=== PATIENT | female | born 1945 | race Caucasian/White ===

== ENCOUNTER 2016-09-24 15:11 | Emergency (ER) | payer OTHER ==
[~2016-09-24] VITALS: Ht 172.7 cm; Wt 113.4 kg
[~2016-09-24 15:11] MED LIST: CARAFATE1 GM/10 ML PO; CIPRO500 M1 PO; MOBIC7.5 MG PO; PERCOCET 325 MG1 TA2 PO
[2016-09-24] MEDS ORDERED: LISINOPRIL10 M1 PO (18:47)
[2016-09-24] MEDS ORDERED: IRON325 M3 PO (18:47)
[2016-09-24] MEDS ORDERED: FUROSEMIDE20 M1 PO (18:47)
[2016-09-24] MEDS ORDERED: JANUVIA100 M1 PO (18:47)
[2016-09-24] MEDS ORDERED: AMLODIPINE-BEN1 EAC3 PO (18:47)
[2016-09-24] MEDS ORDERED: ACTOPLUS MET 11 EAC1 PO (18:48)
[2016-09-24] MEDS ORDERED: OMEPRAZOLE40 M1 PO (18:48)
--- NOTE | 2016-09-24 18:49 | ED EAR COMPLAINT ---
History of Present Illness General Chief Complaint: Ear Complaints Stated Complaint: LEFT EAR PAIN Source: family Exam Limitations: no limitations Vital Signs & Intake/Output Vital Signs & Intake/Output Vital Signs Date Time Temp Pulse Resp B/P B/P Pulse O2 O2 Flow FiO2 Mean Ox Delivery Rate 09/24 1859 97.7 94 18 145/78 97 Room Air 09/24 1518 96.9 104 18 144/74 98 Room Air Allergies Coded Allergies: NO KNOWN ALLERGIES (09/14/14) Reconcile Medications Amlodipine Besylate/Benazepril (Amlodipine-Benazepril 5-10 MG) 5 MG-10 MG CAPSULE 1 CAP PO DAILY BP (Reported) Ciprofloxacin HCl (Cipro) 500 MG TABLET 1 TAB PO BID UTI Ferrous Sulfate (IRON) 325 MG (65 MG IRON) TABLET 1 TAB PO DAILY SUPPLEMENT ( Reported) Furosemide 20 MG TABLET 1 TAB PO PRN DIURETIC (Reported) Lisinopril 10 MG TABLET 1 TAB PO DAILY BP (Reported) Omeprazole 40 MG CAPSULE.DR 1 CAP PO DAILY GI (Reported) Pioglitazone HCl/Metformin HCl (Actoplus Met 15 MG-850 MG Tab) 15 MG-850 MG TABLET 1 TAB PO BID DM (Reported) Sitagliptin Phosphate (Januvia) 100 MG TABLET 1 TAB PO DAILY DM (Reported) Triage Note: 70 YO FEMALE TO ER C/O L EAR PAIN. STATES YESTERDAY IT WAS CLOGGED SO SHE FLUSHED IT OUT AND TODAY SHE IS HAVING SHARP PAINS IN THE EAR. STATES SHE CAN HEAR OUT OF IT BUT NOT WELL USUAL. 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 Triage Nurses Notes Reviewed? yes Onset: Gradual Duration: day(s): Timing: recent history Severity: moderate No Modifying Factors: none HPI: 70-year-old female presents emergency department complaining of left ear pain. Patient states that she had decreased hearing in the left ear and thought she had some cerumen impaction, she has a history of this in the past. She used saline flush on Saturday and then noticed pain increasing in the left ear. Pain has increased until today, she still does not feel that she has regained her hearing fully in the left ear. She denies use of hearing aids or headphones. The patient tried taking Tylenol to relieve her pain however no relief in her symptoms. She denies fevers, chills, sore throat, cough, visual changes, skin changes, dyspnea. (YEIMY AL PA-C) Past History Travel History Traveled to [place] past 21 day No Medical History Any Pertinent Medical History? 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 No (YEIMY AL PA-C) Review of Systems Review of Systems Constitutional: Reports: no symptoms. EENTM: Reports: see HPI. Respiratory: Reports: no symptoms. Cardiovascular: Reports: no symptoms. GI: Reports: no symptoms. Genitourinary: Reports: no symptoms. Musculoskeletal: Reports: no symptoms. Skin: Reports: no symptoms. Neurological/Psychological: Reports: no symptoms. Hematologic/Endocrine: Reports: no symptoms. Immunologic/Allergic: Reports: no symptoms. All Other Systems: Reviewed and Negative (MIKAELA MERRILL,YEIMY WEST) Physical Exam Physical Exam Ears: Bilateral: other (see below). Comments: Well-developed well-nourished person in no acute distress HEENT: Right TM WNL, left canal with white debris, TM without erythema, left tragal tenderness; PERRL, EOMI HEAD is atraumatic. moist mucous membranes, pharynx without erythema or exudate. Neck: Supple, no lymphadenopathy, normal range of motion Back: Nontender, Full range of motion Cardiovascular: Regular rate and rhythms no murmurs rubs or gallops Respiratory: No respiratory distress. Patient speaking in full complete sentences. Breath sounds clear to auscultation bilaterally: NO W/R/R Extremity: No edema, full range of motion of extremities, Neuro: Alert oriented x3, motor sensory normal. There were no obvious focal neurologic abnormalities. Skin: No appreciable rash on exposed skin, skin is warm and dry. Psych: Mood and affect is normal, memory and judgment is normal. (YEIMY AL PA-C) Progress Differential Diagnoses I considered the following diagnoses in my evaluation of the patient: [otitis media, otitis externa, cerumin impaction, vertigo, conductive hearing loss] Plan of Care: Physical examination the patient has white debris filling canal of left ear. SHe is complaining of left ear pain with decreased hearing from left ear. Likely otitis externa. Patient has stable vital signs, skin surrounding the ear is within normal limits, no erythema, no swelling. She was given an otic antibiotic drops for her otitis externa. She'll follow-up with her primary care doctor this week for recheck of her ears. She will return with any worsening symptoms or concerns. The patient is nontoxic appearing, afebrile, she is in no acute distress. The patient is in agreement with the plan of care. Initial ED EKG: none (MIKEALA MERRILL,YEIMY WEST) Departure Departure Disposition: HOME OR SELF CARE Condition: Stable Clinical Impression Primary Impression: Otitis externa Referrals: PEDRO MORIN MD (PCP/Family) Additional Instructions: Apply ear drops into left ear as prescribed for 7 days. Follow up with your primary care doctor in 5-7 days for a re-check. Return with any worsening symptoms or concerns. Take tylenol or motrin as prescribed as needed for pain. Please note that there might be incidental findings in your evaluation that are unrelated to the current emergency department visit. Please notify your primary care doctor about this emergency department visit in order to obtain and review all of the testing performed so that these incidental findings can be monitored as needed. If you had an x-ray performed, please understand that some fractures may not be seen on the initial set of x-rays. If your symptoms persist you might need a repeat set of x-rays to check for such a fracture. If you had a laceration evaluated, please understand that foreign bodies such as glass or wood may not be visible to the naked eye or on plain x-rays. If the wound becomes red, swollen, increasingly more painful or if there is any drainage from the wound, please have it reevaluated by a physician for the possibility of a retained foreign body. If you're unable to follow up as outlined in the discharge instructions please return to the emergency department. Thank you for choosing the [facility] Emergency Department for your care. It was a pleasure to serve you today. Departure Forms: Customer Survey General Discharge Information (MIKAELA MERRILL,YEIMY WEST) PA/HOTEL SERVICES SUPERVISOR Co-Sign Statement Statement: ED Attending supervision documentation- [x] I saw and evaluated the patient. I have also reviewed all the pertinent lab results and diagnostic results. I agree with the findings and the plan of care as documented in the PA's/HOTEL SERVICES SUPERVISOR's documentation. [] I have reviewed the ED Record and agree with the PA's/HOTEL SERVICES SUPERVISOR's documentation. [] Additions or exceptions (if any) to the PAs/HOTEL SERVICES SUPERVISOR's note and plan are summarized below: [] (DAVID WAKEFIELD,DEANDRA Westbrook)
[2016-09-24 18:59] VITALS: BP 145/78
== END 2016-09-24 19:02 ==
LOC: ERH 15:11
DX: H60.92 Unspecified otitis externa, left ear (principal)

== ENCOUNTER 2017-03-17 11:26 | Inpatient (IN) | payer OTHER ==
[~2017-03-17] VITALS: Ht 172.7 cm; Wt 78.0 kg
[~2017-03-17 11:26] MED LIST changes: +ACTOPLUS MET 11 EAC1 PO; +AMLODIPINE-BEN1 EAC3 PO; +FUROSEMIDE20 M1 PO; +IRON325 M3 PO; +JANUVIA100 M1 PO; +LISINOPRIL10 M1 PO; +OMEPRAZOLE40 M1 PO
--- NOTE | 2017-03-17 11:57 | ED GENERAL ADULT ---
History of Present Illness General Chief Complaint: General Adult Stated Complaint: "IM REALLY NOT FEELING GOOD" Source: patient, old records Exam Limitations: no limitations Vital Signs & Intake/Output Vital Signs & Intake/Output Vital Signs Date Time Temp Pulse Resp B/P B/P Pulse O2 O2 Flow FiO2 Mean Ox Delivery Rate 03/19 0800 95 Room Air Room Air 03/19 0458 97.7 82 20 138/80 94 Room Air 03/18 2331 130/88 03/18 2230 98.4 86 20 142/98 99 Room Air 03/18 1538 98.1 89 24 132/64 92 Room Air 03/18 1527 98.1 89 24 132/64 92 Room Air 03/18 1344 Room Air Room Air ED Intake and Output 03/19 0000 03/18 1200 Intake Total 150 Output Total 350 Balance -200 Intake, IV 50 Intake, Oral 100 Output, Urine 350 Patient 78.018 kg Weight Weight Reported by Patient Measurement Method Allergies Coded Allergies: NO KNOWN ALLERGIES (09/14/14) Reconcile Medications Amlodipine Besylate/Benazepril (Amlodipine-Benazepril 5-10 MG) 5 MG-10 MG CAPSULE 1 CAP PO DAILY BP (Reported) Ferrous Sulfate (IRON) 325 MG (65 MG IRON) TABLET 1 TAB PO DAILY SUPPLEMENT ( Reported) Furosemide 20 MG TABLET 1 TAB PO PRN DIURETIC (Reported) Omeprazole 40 MG CAPSULE.DR 1 CAP PO DAILY GI (Reported) Pioglitazone HCl/Metformin HCl (Actoplus Met 15 MG-850 MG Tab) 15 MG-850 MG TABLET 1 TAB PO BID DM (Reported) Sitagliptin Phosphate (Januvia) 100 MG TABLET 1 TAB PO DAILY DM (Reported) Triage Note: PT TO ED WITH C/O COUGH CONGESTION X 2 WEEKS, MORE RECENTLY STARTED WITH DIARRHEA. Triage Nurses Notes Reviewed? yes HPI: 71F PMH HTN, T2DM, GERD with 1 week of worsening malaise, lethargy, abdominal cramping, diarrhea with 3-4 BM/day, nausea, decreased appetite, vomiting, productive cough with green sputum. Symptoms have persisted and worsened in the past day, patient spent most of the last 48 hours sleeping and reporting no energy, with no appetite and decreased PO intake. She denies fever, chills, sore throat, headache, neck stiffness, chest pain, flank pain, dysuria, constipation. Of note she has had her gall bladder removed and denies RUQ pain. Past History Travel History Traveled to [place] past 21 day No Medical History Any Pertinent Medical History? 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 No Review of Systems Review of Systems Constitutional: Reports: see HPI. EENTM: Reports: no symptoms. Respiratory: Reports: no symptoms. Cardiovascular: Reports: no symptoms. GI: Reports: no symptoms. Genitourinary: Reports: no symptoms. Musculoskeletal: Reports: no symptoms. Skin: Reports: no symptoms. Neurological/Psychological: Reports: no symptoms. Hematologic/Endocrine: Reports: no symptoms. Immunologic/Allergic: Reports: no symptoms. All Other Systems: Reviewed and Negative Physical Exam Physical Exam General Appearance: well developed/nourished, mild distress Head: atraumatic, normal appearance Eyes: Bilateral: normal appearance. Ears, Nose, Throat: normal pharynx, normal ENT inspection, hearing grossly normal, mucous membranes dry Neck: normal inspection, supple Respiratory: chest non-tender, no respiratory distress, bilateral mild wheezing, right sided rhonchi Cardiovascular: regular rate/rhythm Gastrointestinal: soft, non-tender Back: normal inspection, normal range of motion Extremities: normal inspection, normal capillary refill Neurologic/Psych: awake, alert, oriented x 3, normal mood/affect Skin: intact, normal color, warm/dry Core Measures ACS in differential dx? No CVA/TIA Diagnosis: No Sepsis Present: No Sepsis Focused Exam Completed? No Progress Differential Diagnoses I considered the following diagnoses in my evaluation of the patient: meningitis , pharyngitis, pneumonia, [place], gastroenteritis, colitis, pancreatitis, pyelonephritis, influenza Plan of Care: Orders Procedure Date/time Status BASIC ELECTROLYTES PLUS BUN&CR 03/20 599 Active Consistent Carbohydrate 2 03/19 B Active C.DIFFICILE 03/19 1000 Complete HEPATIC FUNCTION PANEL 03/19 599 Complete CBC WITHOUT DIFFERENTIAL 01/09 0600 Complete BASIC ELECTROLYTES PLUS BUN&CR 03/19 06 Complete Isolation 03/19 UNK Active Isolation 03/18 2202 Active RT: Evaluation 03/18 1344 Active Current Medications Sig/Verena Start time Last Medication Dose Stop Time Status Admin Insulin Aspart 0 TIDAC 03/18 1200 AC 03/19 (NovoLOG) 1303 Azithromycin 500 MG DAILY 03/18 1100 AC 03/19 (Zithromax) 0930 Dextrose/Water 250 ML (D5W) Ceftriaxone Sodium 1,000 MG DAILY 03/18 1000 AC 03/19 (Rocephin) 0930 Ferrous Sulfate 325 MG DAILY 03/18 1000 AC 03/19 (Feosol) 0930 Omeprazole 40 MG DAILY AC 03/18 0700 AC 03/19 (Prilosec) 0547 Laboratory Tests 03/19/17 0650: Anion Gap 11, Estimated GFR > 60, BUN/Creatinine Ratio 10.0, Total Bilirubin 0.4 , Direct Bilirubin 0.3, AST 19, ALT 40, Alkaline Phosphatase 119, Total Protein 5.3 L, Albumin 2.6 L, CBC w Diff NO MAN DIFF REQ, RBC 3.58 L, MCV 90.1, MCH 30.4, RDW 13.4, MPV 8.0, Gran % 59.8, Lymphocytes % 28.9, Monocytes % 8.2, Eosinophils % 2.4, Basophils % 0.7, Absolute Granulocytes 3.4, Absolute Lymphocytes 1.7, Absolute Monocytes 0.5, Absolute Eosinophils 0.1, Absolute Basophils 0, PUBS MCHC 33.7 Microbiology 03/19 1004 STOOL: Clostridium difficile Toxin A & B - COMP Diagnostic Imaging: Viewed by Me: Radiology Read. Discussed w/RAD: Radiology Read. CXR Impression: PATIENT: LEE ARANGO PRESENT AGE: 71 PATIENT ACCOUNT NO: [id number] : 46 LOCATION: [facility] ORDERING PHYSICIAN: Risa Galarza MD SERVICE DATE: 03/17/17 EXAM TYPE: RAD - XRY-PORTABLE CHEST XRAY EXAMINATION: XR PORTABLE CHEST CLINICAL INFORMATION: Shortness of breath and cough with right-sided rhonchi. Rule out pneumonia. COMPARISON: Chest x-ray dated 02/20/2009. TECHNIQUE: Portable frontal view of the chest was obtained. FINDINGS: The cardiac silhouette is within normal limits in size. Tortuosity and ectasia of the ascending and descending aorta is seen. Bilateral hilar fullness is also noted. Findings are likely accentuated by the rotated positioning of the patient. Lungs bilaterally are symmetrically expanded and demonstrate slight diffuse reticular prominence in the lower lobes bilaterally, consistent with minimal subsegmental atelectasis. No focal consolidation, effusion or pneumothorax is seen. Thoracolumbar scoliosis and degenerative changes are seen in the thoracic spine IMPRESSION: Minimal bibasilar subsegmental atelectasis. No focal pneumonia. DICTATED BY: Ruth Yeager MD DATE/TIME DICTATED:03/17/171252 CONE MARKER:NIDIA DATE/ TIME TRANSCRIBED:03/17/171252 Initial ED EKG: none Departure Departure Disposition: STILL A PATIENT Condition: Stable Clinical Impression Primary Impression: Acute gastroenteritis Secondary Impressions: Acute bronchitis, Elevated LFTs, Leukocytosis Referrals: Con Vital MD (PCP/Family) Departure Forms: Customer Survey General Discharge Information Admission Note Spoke With: Vineet Patrick MD Documentation of Exam: Documentation of any treatments & extenuating circumstances including Concerns Regarding Discharge (functional status, medication knowledge or non-compliance, living conditions, etc.) that warrant an admission rather than observation: MALAISE, WEAKNESS, COUGH WITH GREEN SPUTUM, INTRACTABLE DIARRHEA, DIFFICULTY EATING OR AMBULATING, TO BE ADMITTED FOR WORKUP OF POSSIBLE SEPSIS, IV HYDRATION , BLOOD CULTURES, ABDOMINAL ULTRASOUND AND CT, TRENDING LFTS, POSSIBLE MRCP Critical Care Note Critical Care Note Critical Care Time: 30-74 min General Discharge Information Admission Note Spoke With: Vineet Patrick MD Documentation of Exam: Documentation of any treatments & extenuating circumstances including Concerns Regarding Discharge (functional status, medication knowledge or non-compliance, living conditions, etc.) that warrant an admission rather than observation: MALAISE, WEAKNESS, COUGH WITH GREEN SPUTUM, INTRACTABLE DIARRHEA, DIFFICULTY EATING OR AMBULATING, TO BE ADMITTED FOR WORKUP OF POSSIBLE SEPSIS, IV HYDRATION , BLOOD CULTURES, ABDOMINAL ULTRASOUND AND CT, TRENDING LFTS, POSSIBLE MRCP
[2017-03-17 12:06] LABS: ABSOLUTE BASOPHIL COUNT 0 /CUMM (0.0-0.2); ABSOLUTE EOSINOPHIL COUNT 0 /CUMM (0.0-0.7); ABSOLUTE GRANULOCYTE CT 15.2 /CUMM (1.4-6.5); ABSOLUTE LYMPH COUNT 1.2 /CUMM (1.2-3.4); ABSOLUTE MONOCYTE COUNT 1.1 /CUMM (0.10-0.60); BASOPHIL % 0 % (0.0-2.0); EOSINOPHIL % 0 % (0-5); MEAN CORPUSCULAR HGB 30.2 PG (27.0-31.0); MEAN CORPUSCULAR HGB CONC 33.2 G/DL (33.0-37.0); MEAN CORPUSCULAR VOLUME 91.1 FL (81.0-99.0); MEAN PLATELET VOLUME 8.1 FL (7.4-10.4); PLATELET COUNT 234 /CUMM (130-400); RBC DISTRIBUTION WIDTH 13.2 % (11.5-14.5); RED BLOOD CELL CT 4.62 /CUMM (4.20-5.40); WHITE BLOOD CELL COUNT 17.5 /CUMM (4.8-10.8)
[2017-03-17 12:12] LABS: GRANULOCYTE % 87.1 % (42.2-75.2)
--- NOTE | 2017-03-17 13:01 | RADIOLOGY REPORT ---
EXAMINATION: XR PORTABLE CHEST CLINICAL INFORMATION: Shortness of breath and cough with right-sided rhonchi. Rule out pneumonia. COMPARISON: Chest x-ray dated 02/20/2009. TECHNIQUE: Portable frontal view of the chest was obtained. FINDINGS: The cardiac silhouette is within normal limits in size. Tortuosity and ectasia of the ascending and descending aorta is seen. Bilateral hilar fullness is also noted. Findings are likely accentuated by the rotated positioning of the patient. Lungs bilaterally are symmetrically expanded and demonstrate slight diffuse reticular prominence in the lower lobes bilaterally, consistent with minimal subsegmental atelectasis. No focal consolidation, effusion or pneumothorax is seen. Thoracolumbar scoliosis and degenerative changes are seen in the thoracic spine IMPRESSION: Minimal bibasilar subsegmental atelectasis. No focal pneumonia.
--- NOTE | 2017-03-17 14:08 | History & Physical ---
[place] 03/17/17 1407: General Information and HPI MD Statement: I have seen and personally examined LEE ARANGO and documented this H&P. The patient is a 71 year old F who presented with a patient stated chief complaint of nausea, diarrhea, crampy abdominal pain and cough with sputum.[]. Source of Information: patient, old records Exam Limitations: no limitations History of Present Illness: 71 YO F non smoker with PMH of HTN, DM, GERD, peptic ulcer disease, arthritis, cholecystectomy, hystrectomy and pylonidal cyst removal came to ED with chief complaint of nausea, diarrhea with crampy abdominal pain and cough his sputum. Patient reported that she was in her usual state of health 3 weeks ago when she started to her common cold symptoms and the symptoms come and go. Patient also reported that for last couple of days she has cough with mucus production but she denied any color of the sputum and also blood in the sputum. She also reported that for last couple of days she has watery diarrhea 3-4 bowel movements every day but she denied any false-negative blood in the stool. Patient also reported having crampy abdominal pain and she is feeling gassy all the time. Patient reported nausea but she didn't throw up. She also endorsed that she has chills but she denied fever. Patient also reported having exertional shortness of breath and sometimes dizziness when she tries to get out of the bed. Patient denied any chest pain, short of breath at rest, fever, ill contact, palpitation, vomiting, loss of consciousness, mechanical fall, change in hearing , change in vision and dysuria ED course: Vitals: Temperature 98.0, pulse 1:30, respiratory rate 18, blood pressure 118/76 , oxygen saturation 97% on room air. Labs: WBC count 17.5, hemoglobin 14.0, hematocrit 42.0, platelet count 234, sodium 133, potassium 4.1, BUN 13, creatinine 0.8, anion gap 17, BUN/creatinine ratio 16.3, glucose 372, calcium 0.9, total bilirubin 1.6, AST 91, ALT 77, alkaline phosphatase 189, total protein 6.7. Allergies/Medications Allergies: Coded Allergies: NO KNOWN ALLERGIES (09/14/14) Home Med list Amlodipine Besylate/Benazepril (Amlodipine-Benazepril 5-10 MG) 5 MG-10 MG CAPSULE 1 CAP PO DAILY BP (Reported) Ferrous Sulfate (IRON) 325 MG (65 MG IRON) TABLET 1 TAB PO DAILY SUPPLEMENT ( Reported) Furosemide 20 MG TABLET 1 TAB PO PRN DIURETIC (Reported) Omeprazole 40 MG CAPSULE.DR 1 CAP PO DAILY GI (Reported) Pioglitazone HCl/Metformin HCl (Actoplus Met 15 MG-850 MG Tab) 15 MG-850 MG TABLET 1 TAB PO BID DM (Reported) Sitagliptin Phosphate (Januvia) 100 MG TABLET 1 TAB PO DAILY DM (Reported) Past History Travel History Traveled to [place] past 21 day No Medical History Neurological: NONE EENT: NONE Cardiovascular: hypertension Respiratory: NONE Gastrointestinal: peptic ulcer disease, BLEEDING STOMACH ULCER Hepatic: NONE Renal: NONE Musculoskeletal: ARTHRITIS Psychiatric: NONE Endocrine: NIDDM Blood Disorders: NONE Cancer(s): NONE [employer] AUT[employer]IC/Reproductive: NONE Surgical History Surgical History: cholecystectomy, hysterectomy, PYLONIDAL CYST REMOVAL Past Family/Social History Psychosocial History Services at Home: NONE ETOH Use: denies use Illicit Drug Use: denies illicit drug use Review of Systems Review of Systems Constitutional: Reports: weakness. EENTM: Reports: no symptoms. Cardiovascular: Reports: no symptoms. Respiratory: Reports: cough, short of breath, sputum production. GI: Reports: abdominal pain, diarrhea, nausea. Genitourinary: Reports: no symptoms. Musculoskeletal: Reports: see HPI. Neurological/Psychological: Reports: no symptoms. Exam & Diagnostic Data Last 24 Hrs of Vital Signs/I&O Vital Signs Date Time Temp Pulse Resp B/P B/P Pulse O2 O2 Flow FiO2 Mean Ox Delivery Rate 03/17 1615 97.9 124 20 118/59 95 Room Air 03/17 1400 98.7 128 18 122/69 94 03/17 1129 98.0 130 18 118/76 97 Intake & Output 03/17 1600 03/17 0800 03/17 0000 Intake Total Output Total Balance Patient 250 lb Weight Weight Reported by Patient Measurement Method Physical Exam General Appearance Alert, Oriented X3, Cooperative, No Acute Distress Skin Temp/Moisture Exam: Warm/Dry Sepsis Skin Exam (color): Normal for Ethnicity HEENT Atraumatic, PERRLA, EOMI Neck Supple Cardiovascular Normal S1, Normal S2 Lungs Normal Air Movement, b/l crackles Abdomen Soft, No Tenderness Neurological Normal Speech, Strength at 5/5 X4 Ext, Normal Tone, Sensation Intact Extremities B/L pedal edema Last 24 Hrs of Labs/[place]: Laboratory Tests 03/17/17 1607: Lactic Acid Cancelled 03/17/17 1535: Urinalysis LIGHT H, Urine Color YEL, Urine Clarity CLEAR, Urine pH 6.0, Ur Specific [place] 1.015, Urine Protein 100 H, Urine Ketones 15 H, Urine Nitrite NEG, Urine Bilirubin NEG, Urine Urobilinogen 0.2, Ur Leukocyte Esterase NEG, Ur Microscopic SEDIMENT EXAMINED, Urine RBC 1-3, Urine WBC RARE, Ur Epithelial Cells RARE, Urine Bacteria FEW H, Hyaline Casts 1-3 H, Urine Mucus FEW, Urine Hemoglobin SMALL H, Urine Glucose >=1000 H 03/17/17 1320: Lactic Acid 1.4 03/17/17 1145: Anion Gap 17 H, Estimated GFR > 60, BUN/Creatinine Ratio 16.3, Glucose 372 H, Calcium 9.0, Total Bilirubin 1.6 H, AST 91 H, ALT 77 H, Alkaline Phosphatase 189 H, Total Protein 6.7, Albumin 3.5, Globulin 3.2, Albumin/Globulin Ratio 1.1 , Lipase 46, CBC w Diff MAN DIFF ORDERED, RBC 4.62, MCV 91.1, MCH 30.2, RDW 13.2 , MPV 8.1, Gran % 87.1 H, Lymphocytes % 6.6 L, Monocytes % 6.3, Eosinophils % 0, Basophils % 0, Absolute Granulocytes 15.2 H, Absolute Lymphocytes 1.2, Absolute Monocytes 1.1 H, Absolute Eosinophils 0, Absolute Basophils 0, Platelet Estimate VERIFIED BY SMEAR, Normocytic RBCs VERIFIED, Normochromic RBCs VERIFIED, PUBS MCHC 33.2 Microbiology 03/17 1535 URINE ROUT: Urine Culture - RECD 03/17 1332 BLOOD: Blood Culture - RECD 03/17 1320 BLOOD: Blood Culture - RECD 03/17 1307 BLOOD: Blood Culture - CAN Cancelled: Cancelled via OE: Per MD Decision 03/17 1247 NASOPHARYN: Influenza Virus A & B Rapid Smear - COMP Assessment/Plan Assessment: 71 YO F non smoker with PMH of HTN, DM, GERD, peptic ulcer disease, arthritis, cholecystectomy, hystrectomy and pylonidal cyst removal came to ED with chief complaint of nausea, diarrhea with crampy abdominal pain and cough his sputum. With the patient on general medicine floor to treat for acute gastroenteritis and possible bronchitis. Acute gastroenteritis: -Possibly patient has viral gastroenteritis. -we will follow the stool culture and c.diff. -iv hydration -We will check input and output. -IV zofran as needed for nausea. -we will continue ppi Elevated anion gap; -possibly due to diabetic ketoacidosis considering anion gap 17 with blood sugar level 372 on admission with abdominal pain and diarrhea. -urine ketone are positive could be due to dehydration. Community accquired pneumonia: -possibly she has community accquied pneumonia considering her cough with sputum. -we will follow the blood an durine cultures. -we will follow the urine for strep and legionella antigens. -we will give iv antibiotics ceftriaxone and azithromycin -TRC nebulization as needed. -Pulmonary toilet as needed. -incentive spirometry. -Supplemental o2 as needed to keep the oxygen saturation above 92%. -We will follow the wbc count that is 17 on admission. -we will follow the vitals. -CTA to rule out PE considering her dyspnea. Tansaminitis: -possibly due to WOLFF considering normal hepatitis serology in the past. -we will follow the LFTs -USG upper right quadrent for hepatobiliary to rule out obstructive cause. Episode of hemoptysis: -one episode of hemoptysis in ED -we will do CT scan chest and INR H/O HTN: -We will continue amlodipine but right now holding because of borderline normal BP. -We will resume it tomorrow. H/O DIABETES: -Accu checks -we will hold the oral antidiabetic meds and keep the patient on insulin novolog according to sliding scale. -we will check HbA1c DVT prophylaxis: Mechanical Code status: Full code As Ranked By This Provider Problem List: 1. Acute gastroenteritis 2. Elevated LFTs 3. Leukocytosis 4. Community acquired pneumonia Core Measures/Misc (11/25) Acute Coronary Syndrome ACS Diagnosis: No Congestive Heart Failure Congestive Heart Failure Diagnosis No Cerebrovascular Accident CVA/TIA Diagnosis: No VTE (View Protocol) VTE Risk Factors Age>40 No Mechanical VTE Prophylaxis d/t N/A MechProphylax Ordered No VTE Pharm Prophylaxis d/t NA PharmProphylax ordered Sepsis (View protocol) Sepsis Present: No Sandra WAKE[place] 03/17/17 2106: Resident Review Statement Resident Statement: examined this patient, discussed with pharmacist intern, reviewed images Other Findings: 71-year-old female with a past medical history of hypertension, type 2 diabetes mellitus, GERD, who presented with a one-week of weakness, malaise, abdominal pain, and 3-4 nonbloody diarrhea per day. She denies any sick contact, eating outside, or similar symptom in the past. The patient also reported a week of cough that was initially productive of white sputum that progressed during the past 2 days to be a green sputum, however she denies fever, or chills. While in the ED she coughed a sputum that was mixed with right-sided blood. The patient quit smoking more than 30 years ago and denies alcohol or illicit drug use. Initial labs on admission: Leukocytosis up to 17, hyponatremia, unable to 17, glucose 372, total bilirubin 1.6, mild transaminitis and ALP of 189. ABG revealed respiratory alkalosis with a oxygen of 71. Initial x-ray showed minimal bibasilar subsegmental atelectasis. No focal pneumonia. Abdominal ultrasound revealed mild hepatomegaly otherwise unremarkable liver. Plan #Dyspnea and cough productive of green sputum. Given the leukocytosis, cough productive green sputum the patient should be covered for community-acquired pneumonia. She also complains of pleuritic chest pain, respiratory alkalosis, tachycardia, tachypnea, and hemoptysis, it will be reasonable to exclude PE however given that the patient is dehydrated she will need fluid before and after the CTA to avoid contrast-induced nephropathy. * We will send for panculture * We will start IV ceftriaxone and IV azithromycin * We will order CTA to rule out PE * We will bolus the patient with 1 L before and 1 L after the CTA, while keeping eye on symptom or sign suggestive of overload. * We will order TRC/nebs #Elevated total bilirubin, transaminitis and elevated alkaline phosphatase. On ultrasound she was found to have a remote cholecystectomy, ultrasound did not reveal any gallbladder stones or dilation of the common bile duct. The patient denies right upper quadrant pain and there is no tenderness on physical exam. Her symptoms can be related to dehydration. * We will repeat liver function tests tomorrow morning * We will check INR(abnormal LFT and hemoptysis) * If no improvement we will consider consulting GI. #Type 2 diabetes mellitus, hypertension, and GERD * We will hold amlodipine given the questionable pneumonia and borderline blood pressure. * We will DC all oral anti-hyperglycemic and start patient on sliding scale * Frequent fingerstick glucose level * Patient will be on full liquid diet until she can tolerate diet. * We will continue PPI. -We will hold DVT prophylaxis given the hemoptysis until the CTA done -Clear liquid diet -Full code Vineet Patrick MD 03/17/17 2146: Attending MD Review Statement Attending Statement Attending MD Statement: examined this patient, discuss w/resident/PA/VENDING ATTENDANT, agreed w/resident/PA/VENDING ATTENDANT, reviewed EMR data (avail), reviewed images, amended to note Attending Assessment/Plan: Ms. Arango was interviewed and examined. Her EMR was reviewed. Additional events also discussed with Dr. Flores. Problems: -acute pulmonary and GI illness -cough, tachypnea,sputum production, & diarrhea -hemoptysis -elevated LFT's, hepatomegaly -likely hypovolemia -tachycardia -T2DM -hypertension -GERD, PUD Plan: -admit telemetry -blood & sputum cultures, serrial CBC -CAP antibiotic protocol (bronchitis/pneumonitis) -IV fluids -hepatic U/S -check coags -follow LFT's, BMP -agree with CTA (pre and post hydration) -SSI coverage -hold antihypertensives -cont PPI
--- NOTE | 2017-03-17 17:06 | ULTRASOUND REPORT ---
EXAMINATION: US ABDOMEN COMPLETE CLINICAL INFORMATION: Sepsis and elevated LFTs.. COMPARISON: CT abdomen and pelvis 09/15/2014 TECHNIQUE: Real-time imaging of the abdominal viscera. Millimeter imaging secondary to patient's body habitus and overlying bowel gas FINDINGS: PANCREAS: Partially the body the pancreas is visualized and is normal. Rest the pancreas obscured by overlying bowel gas ABDOMINAL AORTA: The proximal segment is normal in caliber. INFERIOR VENA CAVA: Visualized portions are normal. LIVER: The liver demonstrates enlarged size with normal contour and normal echogenicity. No focal lesion or intrahepatic biliary duct dilatation. Liver measures 18.0 cm in length. GALLBLADDER: The gallbladder has been surgically resected. COMMON BILE DUCT: Normal in caliber measuring 0.4 cm in diameter. RIGHT KIDNEY: Normal. No hydronephrosis. No renal calculi or focal parenchymal lesions. The kidney measures 9.1 cm in maximum dimension. LEFT KIDNEY: Normal. No hydronephrosis. No renal calculi or focal parenchymal lesions. The kidney measures 13.2 cm in maximum dimension. SPLEEN: Normal. The spleen measures 9.6 cm in maximum dimension. FREE FLUID: None. IMPRESSION: Mild hepatomegaly otherwise unremarkable liver. The pancreas is not entirely visualized due to overlying bowel gas. Rest of the abdominal ultrasound is unremarkable.
--- NOTE | 2017-03-17 22:08 | Admission Certification ---
Admission Certification Certification Statement - As attending physician, I certify that at the time of - admission, based on clinical presentation, severity of - symptoms, need for further diagnostic testing and - therapeutic interventions, and risk of adverse outcomes - without in-hospital treatment, in my clinical assessment, - this patient requires an acute hospital stay for a minimum - of two nights or longer. I have also considered psychsocial - factors such as support system, advanced age, financial - issues, cognitive issues, and failed out-patient treatments, - past re-admission history, safety of patient, and lack of - compliance as applicable. Specific rationale supporting this admission is: Treatment of acute symptomatic pulmonary and GI illness
--- NOTE | 2017-03-17 22:11 | CT SCAN REPORT ---
EXAMINATION: CT ANGIOGRAM CHEST, PE STUDY CLINICAL INFORMATION: Shortness of breath. Chest pain. Tachycardia. Tachypnea. Hypoxia. COMPARISON: Chest x-ray 03/17/2017 TECHNIQUE: A noncontrast localizer was performed, followed by the administration of 75 mL Optiray [address] of the chest was then performed. Coronal and sagittal reformatted and 3-D technique MIP images of the chest were completed at the CT scanner and reviewed on the PACS workstation. No adverse effects were reported. DLP: 563.29 mGy-cm. FINDINGS: VASCULAR: The main pulmonary artery, secondary and tertiary branches of the pulmonary artery are normally opacified with no evidence of pulmonary embolism. The aorta and great vessels are unremarkable. MEDIASTINUM: No mediastinal mass. No significant lymphadenopathy. There is no pericardial effusion. LUNGS: Focal dense consolidation with air bronchograms at the dependent posterior costophrenic angle of the left lower lobe. Right lung is clear. Central bronchial airways are open. No interstitial or reticular opacity. FLUID: There is no pericardial effusion. There is no pleural effusion. AXILLA: No significant lymphadenopathy. UPPER ABDOMEN: Adrenal glands normal. Visualized portions of liver and spleen unremarkable. Status post cholecystectomy. SKELETAL: Degenerative spondylosis of dorsal spine with multilevel disc height narrowing with vacuum disc phenomena. There is endplate spurring of the vertebrae. IMPRESSION: 1. No evidence of pulmonary embolism. 2. Focal consolidated infiltrate at the left lower lobe posteriorly.
[2017-03-18 04:13] LABS: ABSOLUTE BASOPHIL COUNT 0 /CUMM (0.0-0.2); ABSOLUTE EOSINOPHIL COUNT 0 /CUMM (0.0-0.7); ABSOLUTE GRANULOCYTE CT 13.2 /CUMM (1.4-6.5); ABSOLUTE LYMPH COUNT 1.9 /CUMM (1.2-3.4); ABSOLUTE MONOCYTE COUNT 1.1 /CUMM (0.10-0.60); BASOPHIL % 0.3 % (0.0-2.0); EOSINOPHIL % 0 % (0-5); GRANULOCYTE % 80.9 % (42.2-75.2); MEAN CORPUSCULAR HGB 30.8 PG (27.0-31.0); MEAN CORPUSCULAR HGB CONC 33.4 G/DL (33.0-37.0); MEAN PLATELET VOLUME 7.9 FL (7.4-10.4); PLATELET COUNT 233 /CUMM (130-400); RBC DISTRIBUTION WIDTH 13.6 % (11.5-14.5); RED BLOOD CELL CT 3.71 /CUMM (4.20-5.40); WHITE BLOOD CELL COUNT 16.4 /CUMM (4.8-10.8)
[2017-03-18 04:27] LABS: HEMATOCRIT 34.2 % (37-47)
--- NOTE | 2017-03-18 10:02 | PN- Housestaff ---
Subjective Follow-up For: Community-acquired pneumonia Transient transaminitis Subjective: No overnight events. Patient remained afebrile overnight. Seen and examined this morning. Denied any chills, fever, nausea, vomiting, diarrhea, abdominal pain, palpitation and dysuria. Patient reported having intermittent cough with sputum. She also reported blood in the sputum. Patient also reported having intermittent chest pain especially with cough and deep breathing. Review of Systems Constitutional: Reports: no symptoms. EENTM: Reports: no symptoms. Cardiovascular: Reports: no symptoms. Respiratory: Reports: cough, short of breath, sputum production. Gastrointestinal: Reports: no symptoms. Genitourinary: Reports: no symptoms. Musculoskeletal: Reports: see HPI. Neurological/Psychological: Reports: no symptoms. Objective Last 24 Hrs of Vital Signs/I&O Vital Signs Date Time Temp Pulse Resp B/P B/P Pulse O2 O2 Flow FiO2 Mean Ox Delivery Rate 03/18 1344 Room Air Room Air 03/18 0553 97.9 125 24 127/71 98 Nasal 3.0L Cannula 03/18 0414 98 Nasal 3.0L Cannula 03/17 2237 97.6 118 26 139/72 97 Nasal 3.0L Cannula 03/17 2034 98 03/17 1825 97.9 132 20 136/95 98 Room Air 03/17 1615 97.9 124 20 118/59 95 Room Air 03/17 1400 98.7 128 18 122/69 94 Intake & Output 03/18 1600 03/18 0800 03/18 0000 Intake Total 2000 Output Total Balance 2000 Intake, IV 2000 Patient 172 lb Weight Weight Reported by Patient Measurement Method Physical Exam General Appearance: Alert, Oriented X3, Cooperative, No Acute Distress Skin Temp/Moisture Exam: Warm/Dry HEENT: Atraumatic, PERRLA, EOMI Neck: Supple Cardiovascular: Normal S1, Normal S2 Lungs: b/l crackles in lungs Abdomen: Soft, No Tenderness Neurological: Normal Speech, Strength at 5/5 X4 Ext, Normal Tone, Sensation Intact Extremities: b/l pedal edema Last 24 Hrs of Lab/[place] Results Last 24 Hrs of Labs/[place]: Laboratory Tests 03/18/17 0615: Total Bilirubin Cancelled, Direct Bilirubin Cancelled, AST Cancelled, ALT Cancelled, Alkaline Phosphatase Cancelled, Total Protein Cancelled, Albumin Cancelled 03/18/17 0405: Anion Gap 9, Estimated GFR > 60, BUN/Creatinine Ratio 15.0, Total Bilirubin 0.7, Direct Bilirubin 0.4, GGT 107 H, AST 32, ALT 56 H, Alkaline Phosphatase 133 H , Total Protein 5.4 L, Albumin 2.6 L, CBC w Diff MAN DIFF ORDERED, RBC 3.71 L , MCV 92.0, MCH 30.8, RDW 13.6, MPV 7.9, Gran % 80.9 H, Lymphocytes % 11.9 L, Monocytes % 6.9, Eosinophils % 0, Basophils % 0.3, Absolute Granulocytes 13.2 H , Segmented Neutrophils 84 H, Band Neutrophils 1, Absolute Lymphocytes 1.9, Lymphocytes 10 L, Monocytes 5, Absolute Monocytes 1.1 H, Absolute Eosinophils 0, Absolute Basophils 0, Platelet Estimate ADEQUATE, Polychromasia 1+, Poikilocytosis 1+, Basophilic Stippling SLIGHT, Anisocytosis 1+, Elliptocytes FEW, PUBS MCHC 33.4 03/17/171999: pH 7.48 H, pCO2 27 L, pO2 71 L, HCO3 20 L, ABG O2 Sat (Measured) 95.0 L, Carboxyhemoglobin 1.0 L, O2 Concentration % RA, O2 Delivery Method RA, Phlebotomy Draw Site RIGHT BRACHIAL 03/17/17 194: PT Cancelled, INR Cancelled 03/17/17 1607: Lactic Acid Cancelled 03/17/17 1535: Urinalysis LIGHT H, Urine Color YEL, Urine Clarity CLEAR, Urine pH 6.0, Ur Specific [place] 1.015, Urine Protein 100 H, Urine Ketones 15 H, Urine Nitrite NEG, Urine Bilirubin NEG, Urine Urobilinogen 0.2, Ur Leukocyte Esterase NEG, Ur Microscopic SEDIMENT EXAMINED, Urine RBC 1-3, Urine WBC RARE, Ur Epithelial Cells RARE, Urine Bacteria FEW H, Hyaline Casts 1-3 H, Urine Mucus FEW, Urine Hemoglobin SMALL H, Urine Glucose >=1000 H Microbiology 03/17 1535 URINE ROUT: Urine Culture - RES Assessment/Plan Assessment: 71 YO F non smoker with PMH of HTN, DM, GERD, peptic ulcer disease, arthritis, cholecystectomy, hystrectomy and pylonidal cyst removal came to ED with chief complaint of nausea, diarrhea with crampy abdominal pain and cough his sputum. With the patient on general medicine floor to treat for acute gastroenteritis and possible bronchitis. Acute gastroenteritis: -Possibly patient has viral gastroenteritis. -we will follow the stool culture and c.diff. -iv hydration -We will check input and output. -IV zofran as needed for nausea. -we will continue ppi Elevated anion gap; -possibly due to diabetic ketoacidosis considering anion gap 17 with blood sugar level 372 on admission with abdominal pain and diarrhea. -urine ketone are positive could be due to dehydration. Community accquired pneumonia: -possibly she has community accquied pneumonia considering her cough with sputum. -we will follow the blood an durine cultures. -we will follow the urine for strep and legionella antigens. -we will give iv antibiotics ceftriaxone and azithromycin -TRC nebulization as needed. -Pulmonary toilet as needed. -incentive spirometry. -Supplemental o2 as needed to keep the oxygen saturation above 92%. -we will follow the vitals. -Patient is CTA is negative for PE and it showing infiltration consolidation of left lower lobe possibly due to pneumonia. Tansaminitis:(IMPROVING) -possibly due to WOLFF considering normal hepatitis serology in the past. -we will follow the LFTs -USG upper right quadrent for hepatobiliary to rule out obstructive cause. -Patient's GGT is high that shows the alkaline phosphatase is due to liver disease. Possibly patient has Wolff or due to congestion of liver. -Patient [place]'s tendinitis is improving. Episode of hemoptysis: -one episode of hemoptysis in ED -CTA is negative for any PE but is showing focal consolidation of left lower lobe probably due to pneumonia. Possibly hemoptysis is due to pneumonia. H/O HTN: -We will continue amlodipine but right now holding because of borderline normal BP. -We will resume it tomorrow. H/O DIABETES: -Accu checks -we will hold the oral antidiabetic meds and keep the patient on insulin novolog according to sliding scale. -we will check HbA1c DVT prophylaxis: Mechanical Code status: Full code Problem List: 1. Community acquired pneumonia 2. Elevated LFTs Pain Ratin Pain Location: NONE Pain Goal: Remain pain free Pain Plan: TYLENOL FOR MILD PAIN Tomorrow's Labs & Rationales: CBC/BEP
--- NOTE | 2017-03-18 10:49 | PN- Att Addend ---
Attending Addendum Attending Brief Note Evidence over the weekend noted that patient still feels weak, maybe a little better than yesterday patient very hard of hearing now, patient afebrile overnight, her pulse rate slightly over 100. Her blood pressure stable. No new changes on physical. White count slightly elevated. Will check all the [id number] TOTALS 03/18 0000 03/17 0000 Intake Total 2000 Output Total Balance 2000 Intake, IV 2000 Patient 250 lb Weight Weight Reported by Patient Measurement Method Current Medications Sig/Verena Start time Last Medication Dose Route Stop Time Status Admin Acetaminophen 0 .STK-MED ONE 03/17 1232 DC PO Acetaminophen 650 MG ONCE ONE 03/17 1215 DC 03/17 PO 03/17 1216 1231 Albuterol Sulfate 3 ML ONCE ONE 03/17 1930 DC 03/17 INH 03/17 193 1935 Azithromycin 500 MG DAILY 03/18 1100 AC Dextrose/Water 250 ML IV Azithromycin 500 MG DAILY 03/18 1000 DC Sodium Chloride 250 ML IV Azithromycin 500 MG ONCE ONE 03/17 1545 DC 03/17 Sodium Chloride 250 ML IV 03/17 1644 1730 Ceftriaxone Sodium 1,000 MG DAILY 03/18 1000 AC IV Ceftriaxone Sodium 0 .STK-MED ONE 03/17 1752 DC .ROUTE Ceftriaxone Sodium 1,000 MG ONCE ONE 03/17 1545 DC 03/17 IV 03/17 1546 1708 Ferrous Sulfate 325 MG DAILY 03/18 1000 AC PO Insulin Aspart 0 TIDAC 03/18 1200 AC SC Insulin Aspart 0 TIDAC 03/18 0800 DC SC Ipratropium [place] 2.5 ML ONCE ONE 03/17 1930 DC 03/17 INH 03/17 193 1935 Omeprazole 40 MG DAILY AC 03/18 0700 AC 03/18 PO 0600 Omeprazole 0 .STK-MED ONE 03/18 0603 DC PO Sodium Chloride 1,000 ML BOLUS ONE 03/17 2115 DC 03/17 IV 03/17 2214 2050 Sodium Chloride 1,000 ML BOLUS ONE 03/17 2100 DC 03/17 IV 03/17 2259 2234 Sodium Chloride 1,000 ML Q13H 03/17 2100 AC 03/18 IV 0932 Sodium Chloride 1,000 ML Q13H 03/17 1800 DC 03/17 IV 1838 Sodium Chloride 1,000 ML BOLUS ONE 03/17 1300 DC 03/17 IV 03/17 1459 1308 Laboratory Tests 03/18/17 0615: Total Bilirubin Cancelled, Direct Bilirubin Cancelled, AST Cancelled, ALT Cancelled, Alkaline Phosphatase Cancelled, Total Protein Cancelled, Albumin Cancelled 03/18/17 0405: Anion Gap 9, Estimated GFR > 60, BUN/Creatinine Ratio 15.0, Total Bilirubin 0.7, Direct Bilirubin 0.4, GGT 107 H, AST 32, ALT 56 H, Alkaline Phosphatase 133 H , Total Protein 5.4 L, Albumin 2.6 L, CBC w Diff MAN DIFF ORDERED, RBC 3.71 L , MCV 92.0, MCH 30.8, RDW 13.6, MPV 7.9, Gran % 80.9 H, Lymphocytes % 11.9 L, Monocytes % 6.9, Eosinophils % 0, Basophils % 0.3, Absolute Granulocytes 13.2 H , Segmented Neutrophils 84 H, Band Neutrophils 1, Absolute Lymphocytes 1.9, Lymphocytes 10 L, Monocytes 5, Absolute Monocytes 1.1 H, Absolute Eosinophils 0, Absolute Basophils 0, Platelet Estimate ADEQUATE, Polychromasia 1+, Poikilocytosis 1+, Basophilic Stippling SLIGHT, Anisocytosis 1+, Elliptocytes FEW, PUBS MCHC 33.4 03/17/171999: pH 7.48 H, pCO2 27 L, pO2 71 L, HCO3 20 L, ABG O2 Sat (Measured) 95.0 L, Carboxyhemoglobin 1.0 L, O2 Concentration % RA, O2 Delivery Method RA, Phlebotomy Draw Site RIGHT BRACHIAL 03/17/17 194: PT Cancelled, INR Cancelled 03/17/17 1607: Lactic Acid Cancelled 03/17/17 1535: Urinalysis LIGHT H, Urine Color YEL, Urine Clarity CLEAR, Urine pH 6.0, Ur Specific [place] 1.015, Urine Protein 100 H, Urine Ketones 15 H, Urine Nitrite NEG, Urine Bilirubin NEG, Urine Urobilinogen 0.2, Ur Leukocyte Esterase NEG, Ur Microscopic SEDIMENT EXAMINED, Urine RBC 1-3, Urine WBC RARE, Ur Epithelial Cells RARE, Urine Bacteria FEW H, Hyaline Casts 1-3 H, Urine Mucus FEW, Urine Hemoglobin SMALL H, Urine Glucose >=1000 H 03/17/17 1320: Lactic Acid 1.4 03/17/17 1145: Anion Gap 17 H, Estimated GFR > 60, BUN/Creatinine Ratio 16.3, Glucose 372 H, Calcium 9.0, Phosphorus 2.6, Magnesium 1.5 L, Total Bilirubin 1.6 H, AST 91 H , ALT 77 H, Alkaline Phosphatase 189 H, Total Protein 6.7, Albumin 3.5, Globulin 3.2, Albumin/Globulin Ratio 1.1, Lipase 46, TSH 0.764, CBC w Diff MAN DIFF ORDERED, RBC 4.62, MCV 91.1, MCH 30.2, RDW 13.2, MPV 8.1, Gran % 87.1 H, Lymphocytes % 6.6 L, Monocytes % 6.3, Eosinophils % 0, Basophils % 0, Absolute Granulocytes 15.2 H, Absolute Lymphocytes 1.2, Absolute Monocytes 1.1 H, Absolute Eosinophils 0, Absolute Basophils 0, Platelet Estimate VERIFIED BY SMEAR, Normocytic RBCs VERIFIED, Normochromic RBCs VERIFIED, PUBS MCHC 33.2 Microbiology 03/17 1247 NASOPHARYN: Influenza Virus A & B Rapid Smear - COMP Microbiology Date/Time Procedure - Status Source Growth 03/17 1535 Urine Culture - RES URINE ROUT 03/17 1332 Blood Culture - RECD BLOOD 03/17 1320 Blood Culture - RECD BLOOD 03/17 1307 Blood Culture - CAN BLOOD Cancelled: Cancelled via OE: Per MD Decision 03/17 1247 Influenza Virus A & B Rapid Smear - COMP NASOPHARYN Vital Signs Date Time Temp Pulse Resp B/P B/P Pulse O2 O2 Flow FiO2 Mean Ox Delivery Rate 03/18 0553 97.9 125 24 127/71 98 Nasal 3.0L Cannula 03/18 0414 98 Nasal 3.0L Cannula 03/17 2237 97.6 118 26 139/72 97 Nasal 3.0L Cannula 03/17 2034 98 03/17 1825 97.9 132 20 136/95 98 Room Air 03/17 1615 97.9 124 20 118/59 95 Room Air 03/17 1400 98.7 128 18 122/69 94 03/17 1129 98.0 130 18 118/76 97 Also monitoring elevated liver function tests.
[2017-03-18 15:38] VITALS: BP 132/64
[2017-03-18 22:30] VITALS: BP 142/98
[2017-03-18 23:31] VITALS: BP 130/88
[2017-03-19 04:58] VITALS: BP 138/80
--- NOTE | 2017-03-19 07:48 | PN- Housestaff ---
Subjective Follow-up For: CAP Tansient transaminitis.(resolved) Subjective: No overnight events. She remained afibrile overnight. She denied fever, chill, chest pain, SOB, palpitations, abdominal pain and dysuria. reported intermittent cough with sputum with blood ting. Eating and drinking fine. Review of Systems Constitutional: Reports: no symptoms. EENTM: Reports: no symptoms. Cardiovascular: Reports: no symptoms. Respiratory: Reports: cough, sputum production. Gastrointestinal: Reports: no symptoms. Genitourinary: Reports: no symptoms. Musculoskeletal: Reports: no symptoms. Neurological/Psychological: Reports: no symptoms. Objective Last 24 Hrs of Vital Signs/I&O Vital Signs Date Time Temp Pulse Resp B/P B/P Pulse O2 O2 Flow FiO2 Mean Ox Delivery Rate 03/19 08 95 Room Air Room Air 03/19 0458 97.7 82 20 138/80 94 Room Air 03/18 2331 130/88 03/18 2230 98.4 86 20 142/98 99 Room Air 03/18 1538 98.1 89 24 132/64 92 Room Air 03/18 1527 98.1 89 24 132/64 92 Room Air 03/18 1344 Room Air Room Air Intake & Output 03/19 1600 03/19 0800 03/19 0000 Intake Total 650 150 Output Total 300 Balance 350 150 Intake, IV 350 50 Intake, Oral 300 100 Output, Urine 300 Physical Exam General Appearance: Alert, Oriented X3, Cooperative, No Acute Distress Skin Temp/Moisture Exam: Warm/Dry HEENT: Atraumatic, PERRLA, EOMI Neck: Supple Cardiovascular: Normal S1, Normal S2 Lungs: b/l crackles in lungs Abdomen: Soft, No Tenderness Neurological: Normal Speech, Strength at 5/5 X4 Ext, Normal Tone, Sensation Intact Extremities: b/l pedal edema Last 24 Hrs of Lab/[place] Results Last 24 Hrs of Labs/Mics: Laboratory Tests 03/19/17 0650: Anion Gap 11, Estimated GFR > 60, BUN/Creatinine Ratio 10.0, Total Bilirubin 0.4 , Direct Bilirubin 0.3, AST 19, ALT 40, Alkaline Phosphatase 119, Total Protein 5.3 L, Albumin 2.6 L, CBC w Diff NO MAN DIFF REQ, RBC 3.58 L, MCV 90.1, MCH 30.4, RDW 13.4, MPV 8.0, Gran % 59.8, Lymphocytes % 28.9, Monocytes % 8.2, Eosinophils % 2.4, Basophils % 0.7, Absolute Granulocytes 3.4, Absolute Lymphocytes 1.7, Absolute Monocytes 0.5, Absolute Eosinophils 0.1, Absolute Basophils 0, PUBS MCHC 33.7 Microbiology 03/19 1004 STOOL: Clostridium difficile Toxin A & B - COMP Assessment/Plan Assessment: 71 YO F non smoker with PMH of HTN, DM, GERD, peptic ulcer disease, arthritis, cholecystectomy, hystrectomy and pylonidal cyst removal came to ED with chief complaint of nausea, diarrhea with crampy abdominal pain and cough his sputum. With the patient on general medicine floor to treat for acute gastroenteritis and possible bronchitis. Acute gastroenteritis:(Resolved) -Possibly patient has viral gastroenteritis. -iv hydration -We will check input and output. -IV zofran as needed for nausea. -we will continue ppi -C.diff is negative. Elevated anion gap; -possibly due to diabetic ketoacidosis considering anion gap 17 with blood sugar level 372 on admission with abdominal pain and diarrhea. -urine ketone are positive could be due to dehydration. Community accquired pneumonia: -possibly she has community accquied pneumonia considering her cough with sputum. -we will follow the blood an durine cultures. -we will follow the urine for strep and legionella antigens. -we will give iv antibiotics ceftriaxone and azithromycin -TRC nebulization as needed. -Pulmonary toilet as needed. -incentive spirometry. -Supplemental o2 as needed to keep the oxygen saturation above 92%. -we will follow the vitals. -Patient is CTA is negative for PE and it showing infiltration consolidation of left lower lobe possibly due to pneumonia. -If she remained afibrile tomorrow we will change her antibiotics to PO. Tansaminitis:(Resolved) -possibly due to WOLFF considering normal hepatitis serology in the past. -we will follow the LFTs -USG upper right quadrent for hepatobiliary to rule out obstructive cause. -Patient's GGT is high that shows the alkaline phosphatase is due to liver disease. Possibly patient has Wolff or due to congestion of liver. -Patient [place]'s tendinitis is improving. Episode of hemoptysis: -one episode of hemoptysis in ED -CTA is negative for any PE but is showing focal consolidation of left lower lobe probably due to pneumonia. Possibly hemoptysis is due to pneumonia. H/O HTN: -We will continue amlodipine but right now holding because of borderline normal BP. -We will resume it tomorrow. H/O DIABETES: -Accu checks -we will hold the oral antidiabetic meds and keep the patient on insulin novolog according to sliding scale. -we will check HbA1c DVT prophylaxis: Mechanical Code status: Full code Problem List: 1. Community acquired pneumonia 2. Elevated LFTs Pain Ratin Pain Location: none Pain Goal: Remain pain free Pain Plan: tylenol for mild pain Tomorrow's Labs & Rationales: bep
[2017-03-19 08:04] LABS: ABSOLUTE BASOPHIL COUNT 0 /CUMM (0.0-0.2); ABSOLUTE MONOCYTE COUNT 0.5 /CUMM (0.10-0.60); BASOPHIL % 0.7 % (0.0-2.0); RBC DISTRIBUTION WIDTH 13.4 % (11.5-14.5)
[2017-03-19 08:21] LABS: ABSOLUTE EOSINOPHIL COUNT 0.1 /CUMM (0.0-0.7); ABSOLUTE GRANULOCYTE CT 3.4 /CUMM (1.4-6.5); ABSOLUTE LYMPH COUNT 1.7 /CUMM (1.2-3.4); EOSINOPHIL % 2.4 % (0-5); GRANULOCYTE % 59.8 % (42.2-75.2); HEMATOCRIT 32.3 % (37-47); MEAN CORPUSCULAR HGB 30.4 PG (27.0-31.0); MEAN CORPUSCULAR HGB CONC 33.7 G/DL (33.0-37.0); MEAN CORPUSCULAR VOLUME 90.1 FL (81.0-99.0); PLATELET COUNT 238 /CUMM (130-400); RED BLOOD CELL CT 3.58 /CUMM (4.20-5.40)
[2017-03-19 08:24] LABS: WHITE BLOOD CELL COUNT 5.7 /CUMM (4.8-10.8)
--- NOTE | 2017-03-19 10:23 | PN- Att Addend ---
Attending Addendum Attending Brief Note Patient feeling and looking, still very hard of hearing. Vital signs are stable no fever. No major changes on physical. Patient had a CTA of the chest which showed no pulmonary emboli which showed an infiltrate left lower lobe posteriorly so her symptoms are possibly secondary to pneumonia. She is down to 5700 with her stool for C. difficile are pending. We will continue IV antibiotics for 1 more day. Is stable switch to by mouth antibiotics in the morning and probably start disposition plans. Intake & Output 03/19 1600 03/19 0400 03/18 1600 03/18 0400 03/17 1600 03/17 0400 Intake Total 474 328 8086 Output Total 300 350 Balance 350 150 -350 2000 Intake, IV 396 94 0597 Intake, Oral 300 100 Output, Urine 300 350 Patient 172 lb 250 lb Weight Weight Reported by Patient Reported by Patient Measurement Method Current Medications Sig/Verena Start time Last Medication Dose Route Stop Time Status Admin Acetaminophen 650 MG ONCE ONE 03/19 0100 DC 03/19 PO 03/19 0101 0058 Acetaminophen 0 .STK-MED ONE 03/18 1346 DC PO Acetaminophen 650 MG ONCE ONE 03/18 1345 DC 03/18 PO 03/18 1346 1355 Azithromycin 500 MG DAILY 03/18 1100 AC 03/19 Dextrose/Water 250 ML IV 0930 Azithromycin 500 MG DAILY 03/18 1000 DC Sodium Chloride 250 ML IV Ceftriaxone Sodium 0 .STK-MED ONE 03/18 1136 DC .ROUTE Ceftriaxone Sodium 1,000 MG DAILY 03/18 1000 AC 03/19 IV 0930 Ferrous Sulfate 325 MG DAILY 03/18 1000 AC 03/19 PO 0930 Insulin Aspart 0 TIDAC 03/18 1200 AC 03/19 SC 0836 Omeprazole 40 MG DAILY AC 03/18 0700 AC 03/19 PO 0547 Sodium Chloride 1,000 ML Q13H 03/17 2100 AC 03/18 IV 2158 Laboratory Tests 03/19/17 0650: Anion Gap 11, Estimated GFR > 60, BUN/Creatinine Ratio 10.0, Total Bilirubin 0.4 , Direct Bilirubin 0.3, AST 19, ALT 40, Alkaline Phosphatase 119, Total Protein 5.3 L, Albumin 2.6 L, CBC w Diff NO MAN DIFF REQ, RBC 3.58 L, MCV 90.1, MCH 30.4, RDW 13.4, MPV 8.0, Gran % 59.8, Lymphocytes % 28.9, Monocytes % 8.2, Eosinophils % 2.4, Basophils % 0.7, Absolute Granulocytes 3.4, Absolute Lymphocytes 1.7, Absolute Monocytes 0.5, Absolute Eosinophils 0.1, Absolute Basophils 0, [facility] MCHC 33.7 03/18/17 0615: Total Bilirubin Cancelled, Direct Bilirubin Cancelled, AST Cancelled, ALT Cancelled, Alkaline Phosphatase Cancelled, Total Protein Cancelled, Albumin Cancelled 03/18/17 0405: Anion Gap 9, Estimated GFR > 60, BUN/Creatinine Ratio 15.0, Total Bilirubin 0.7, Direct Bilirubin 0.4, GGT 107 H, AST 32, ALT 56 H, Alkaline Phosphatase 133 H , Total Protein 5.4 L, Albumin 2.6 L, CBC w Diff MAN DIFF ORDERED, RBC 3.71 L , MCV 92.0, MCH 30.8, RDW 13.6, MPV 7.9, Gran % 80.9 H, Lymphocytes % 11.9 L, Monocytes % 6.9, Eosinophils % 0, Basophils % 0.3, Absolute Granulocytes 13.2 H , Segmented Neutrophils 84 H, Band Neutrophils 1, Absolute Lymphocytes 1.9, Lymphocytes 10 L, Monocytes 5, Absolute Monocytes 1.1 H, Absolute Eosinophils 0, Absolute Basophils 0, Platelet Estimate ADEQUATE, Polychromasia 1+, Poikilocytosis 1+, Basophilic Stippling SLIGHT, Anisocytosis 1+, Elliptocytes FEW, [facility] 03/17/171999: pH 7.48 H, pCO2 27 L, pO2 71 L, HCO3 20 L, ABG O2 Sat (Measured) 95.0 L, Carboxyhemoglobin 1.0 L, O2 Concentration % RA, O2 Delivery Method RA, Phlebotomy Draw Site RIGHT BRACHIAL 03/17/17 194: PT Cancelled, INR Cancelled 03/17/17 1607: Lactic Acid Cancelled 03/17/17 1535: Urinalysis LIGHT H, Urine Color YEL, Urine Clarity CLEAR, Urine pH 6.0, Ur Specific [place] 1.015, Urine Protein 100 H, Urine Ketones 15 H, Urine Nitrite NEG, Urine Bilirubin NEG, Urine Urobilinogen 0.2, Ur Leukocyte Esterase NEG, Ur Microscopic SEDIMENT EXAMINED, Urine RBC 1-3, Urine WBC RARE, Ur Epithelial Cells RARE, Urine Bacteria FEW H, Hyaline Casts 1-3 H, Urine Mucus FEW, Urine Hemoglobin SMALL H, Urine Glucose >=1000 H 03/17/17 1320: Lactic Acid 1.4 03/17/17 1145: Anion Gap 17 H, Estimated GFR > 60, BUN/Creatinine Ratio 16.3, Glucose 372 H, Calcium 9.0, Phosphorus 2.6, Magnesium 1.5 L, Total Bilirubin 1.6 H, AST 91 H , ALT 77 H, Alkaline Phosphatase 189 H, Total Protein 6.7, Albumin 3.5, Globulin 3.2, Albumin/Globulin Ratio 1.1, Lipase 46, TSH 0.764, CBC w Diff MAN DIFF ORDERED, RBC 4.62, MCV 91.1, MCH 30.2, RDW 13.2, MPV 8.1, Gran % 87.1 H, Lymphocytes % 6.6 L, Monocytes % 6.3, Eosinophils % 0, Basophils % 0, Absolute Granulocytes 15.2 H, Absolute Lymphocytes 1.2, Absolute Monocytes 1.1 H, Absolute Eosinophils 0, Absolute Basophils 0, Platelet Estimate VERIFIED BY SMEAR, Normocytic RBCs VERIFIED, Normochromic RBCs VERIFIED, PUBS MCHC 33.2 Microbiology 03/19 1000 STOOL: Clostridium difficile Toxin A & B - ORD 03/17 1535 URINE ROUT: Urine Culture - COMP 03/17 1332 BLOOD: Blood Culture - RES 03/17 1320 BLOOD: Blood Culture - RES 03/17 1307 BLOOD: Blood Culture - CAN Cancelled: Cancelled via OE: Per Decision 03/17 124 NASOPHARYN: Influenza Virus A & B Rapid Smear - COMP Microbiology 03/19 1000 STOOL: Clostridium difficile Toxin A & B - ORD 03/17 1535 URINE ROUT: Urine Culture - COMP 03/17 1332 BLOOD: Blood Culture - RES 03/17 1320 BLOOD: Blood Culture - RES 03/17 1307 BLOOD: Blood Culture - CAN Cancelled: Cancelled via OE: Per Decision 03/17 1247 NASOPHARYN: Influenza Virus A & B Rapid Smear - COMP Vital Signs Date Time Temp Pulse Resp B/P B/P Pulse O2 O2 Flow FiO2 Mean Ox Delivery Rate 03/19 0458 97.7 82 20 138/80 94 Room Air 03/18 2331 130/88 03/18 2230 98.4 86 20 142/98 99 Room Air 03/18 1538 98.1 89 24 132/64 92 Room Air 03/18 1527 98.1 89 24 132/64 92 Room Air 03/18 1344 Room Air Room Air
[2017-03-19 14:13] VITALS: BP 120/70
[2017-03-19 22:11] VITALS: BP 142/90
[2017-03-20 06:27] VITALS: BP 140/86
--- NOTE | 2017-03-20 07:30 | PN- Housestaff ---
Subjective Follow-up For: CAP Tansient transaminitis.(resolved) Subjective: And events. Patient remained afebrile overnight. Seen and examined this morning. She denied any chest pain, short of breath, nausea, vomiting, abdominal pain, chills, fever and dysuria. Patient reported having intermittent cough and bringing up mucus blood tinged sometimes. Patient denied any abdominal pain and diarrhea. Review of Systems Constitutional: Reports: no symptoms. EENTM: Reports: no symptoms. Cardiovascular: Reports: no symptoms. Respiratory: Reports: cough, sputum production. Gastrointestinal: Reports: no symptoms. Genitourinary: Reports: no symptoms. Musculoskeletal: Reports: no symptoms. Neurological/Psychological: Reports: no symptoms. Objective Last 24 Hrs of Vital Signs/I&O Vital Signs Date Time Temp Pulse Resp B/P B/P Pulse O2 O2 Flow FiO2 Mean Ox Delivery Rate 03/20 0627 98.2 84 18 140/86 94 Room Air 03/20 0000 Room Air 03/19 2211 98.8 91 20 142/90 95 Room Air 03/19 1600 95 Room Air Room Air 03/19 1413 97.5 94 20 120/70 98 Room Air Intake & Output 03/20 1600 03/20 0800 03/20 0000 Intake Total 500 850 Output Total 500 Balance 500 350 Intake, IV 20 10 Intake, Oral 480 840 Number 0 0 Bowel Movements Output, Urine 500 Physical Exam General Appearance: Alert, Oriented X3, Cooperative, No Acute Distress Skin Temp/Moisture Exam: Warm/Dry Sepsis Skin Exam (color): Normal for Ethnicity HEENT: Atraumatic, PERRLA, EOMI Neck: Supple Cardiovascular: Normal S1, Normal S2 Lungs: B/L crackles in lungs Abdomen: Soft, No Tenderness Neurological: Normal Speech, Strength at 5/5 X4 Ext, Normal Tone, Sensation Intact Extremities: b/l edema Assessment/Plan Assessment: 71 YO F non smoker with PMH of HTN, DM, GERD, peptic ulcer disease, arthritis, cholecystectomy, hystrectomy and pylonidal cyst removal came to ED with chief complaint of nausea, diarrhea with crampy abdominal pain and cough his sputum. With the patient on general medicine floor to treat for acute gastroenteritis and possible bronchitis. Acute gastroenteritis:(Resolved) -Possibly patient has viral gastroenteritis. -iv hydration -We will check input and output. -IV zofran as needed for nausea. -we will continue ppi -C.diff is negative. Elevated anion gap; -possibly due to diabetic ketoacidosis considering anion gap 17 with blood sugar level 372 on admission with abdominal pain and diarrhea. -urine ketone are positive could be due to dehydration. Community accquired pneumonia: -possibly she has community accquied pneumonia considering her cough with sputum. -Blood cultures still negaive. -TRC nebulization as needed. -Pulmonary toilet as needed. -incentive spirometry. -Supplemental o2 as needed to keep the oxygen saturation above 92%. -we will follow the vitals. -Patient is CTA is negative for PE and it showing infiltration consolidation of left lower lobe possibly due to pneumonia. -we will start augmentin for 7 more days to complete 10 days antibiotic course. We will repeat the Chest x-ray in two weeks as outpatient. Tansaminitis:(Resolved) -possibly due to WOLFF considering normal hepatitis serology in the past. -we will follow the LFTs -USG upper right quadrent for hepatobiliary to rule out obstructive cause. -Patient's GGT is high that shows the alkaline phosphatase is due to liver disease. Possibly patient has Wolff or due to congestion of liver. -Patient [place]'s tendinitis is improving. Episode of hemoptysis: -one episode of hemoptysis in ED -CTA is negative for any PE but is showing focal consolidation of left lower lobe probably due to pneumonia. Possibly hemoptysis is due to pneumonia. H/O HTN: -We will continue amlodipine but right now holding because of borderline normal BP. -We will resume it tomorrow. H/O DIABETES: -Accu checks -we will hold the oral antidiabetic meds and keep the patient on insulin novolog according to sliding scale. -we will check HbA1c DVT prophylaxis: Mechanical Code status: Full code Problem List: 1. Community acquired pneumonia Pain Ratin Pain Location: none Pain Goal: Remain pain free Pain Plan: tylenol for mild pain Tomorrow's Labs & Rationales: none
--- NOTE | 2017-03-20 08:15 | Patient Discharge Instructions ---
Discharge Instructions General Discharge Information You were seen/treated for: Community accquired pneumonia Viral gastroenteritis Watch for these problems: Nausea, vomiting, abdominal pain, diarrhea, cough with sputum, fever, chills and altered mental status. If you experience any of these symptoms come to ED or call to your PCP. Special Instructions: Follow up with your primary care physician in one week. Take your medication regularly. Repeat chest x-ray in 2 weeks as outpatient. Diet Recommended Diet: Diabetic Activity Activity Self Limited: Yes Acute Coronary Syndrome Inclusion Criteria At DC or during hospital stay patient has or had the following: ACS DIAGNOSIS No Discharge Core Measures Meds if any: Prescribed or Continued at Discharge Meds if any: NOT Prescribed or Continued at Discharge Congestive Heart Failure Inclusion Criteria At DC or during hospital stay patient has or had the following: CHF DIAGNOSIS No Discharge Core Measures Meds if any: Prescribed or Continued at Discharge Meds if any: NOT Prescribed or Continued at Discharge Cerebrovascular accident Inclusion Criteria At DC or during hospital stay patient has or had the following: CVA/TIA Diagnosis No Discharge Core Measures Meds if any: Prescribed or Continued at Discharge Meds if any: NOT Prescribed or Continued at Discharge Venous thromboembolism Inclusion Criteria VTE Diagnosis No VTE Type NONE VTE Confirmed by (Test) NONE Discharge Core Measures - Per Current guidelines, there needs to be overlap - treatment for the first 5 days of Warfarin therapy. - If discharged on Warfarin prior to 5 days of - overlap therapy, the patient will need to be - assessed for post discharge needs including - *Post discharge parental anticoagulation - *Warfarin and/or parental anticoagulation education - *Follow up date to check INR post discharge At least 5 days overlap therapy as Inpatient No Meds if any: Prescribed or Continued at Discharge Note: Overlap Therapy is Warfarin and Anticoagulant Meds if any: NOT Prescribed or Continued at Discharge
[2017-03-20] MEDS ORDERED: AMOX-CLAV 875-1 EACH PO (10:08)
--- NOTE | 2017-03-20 10:45 | PN- Att Addend ---
Attending Addendum Attending Brief Note Patient better and stronger. Vital signs are stable no fever no new changes on physical. Switched to by mouth antibiotics. We'll start disposition plans for the patient to call today for follow-up as an outpatient, follow-up chest x-ray as an outpatient for complete clearing see the CMR. Intake & Output 03/20 1600 03/20 0400 03/19 1600 03/19 0400 03/18 1600 03/18 0400 Intake Total 384 607 0889 150 2000 Output Total 500 300 350 Balance 818 587 0978 150 -350 2000 Intake, IV 20 10 400 19 2933 Intake, Oral 329 386 6227 100 Number 0 0 1 Bowel Movements Output, Urine 500 300 350 Patient 172 lb Weight Weight Reported by Patient Measurement Method Current Medications Sig/Verena Start time Last Medication Dose Route Stop Time Status Admin Amoxicillin/ 875 MG Q12 03/20 1000 AC 03/20 Clavulanate Potassium PO 0933 Azithromycin 500 MG DAILY 03/18 1100 DC 03/19 Dextrose/Water 250 ML IV 0930 Ceftriaxone Sodium 1,000 MG DAILY 03/18 1000 DC 03/19 IV 0930 Ferrous Sulfate 325 MG DAILY 03/18 1000 AC 03/20 PO 0933 Insulin Aspart 0 TIDAC 03/18 1200 AC 03/20 SC 0933 Omeprazole 40 MG DAILY AC 03/18 0700 AC 03/20 PO 0552 Potassium Chloride 40 MEQ ONCE ONE 03/19 1330 DC 03/19 PO 03/19 1331 1328 Sodium Chloride 1,000 ML Q13H 03/17 2100 DC 03/18 IV 2158 Laboratory Tests 03/20/17 0730: Anion Gap 10, Estimated GFR > 60, BUN/Creatinine Ratio 10.0 03/19/17 0650: Anion Gap 11, Estimated GFR > 60, BUN/Creatinine Ratio 10.0, Total Bilirubin 0.4 , Direct Bilirubin 0.3, AST 19, ALT 40, Alkaline Phosphatase 119, Total Protein 5.3 L, Albumin 2.6 L, CBC w Diff NO MAN DIFF REQ, RBC 3.58 L, MCV 90.1, MCH 30.4, RDW 13.4, MPV 8.0, Gran % 59.8, Lymphocytes % 28.9, Monocytes % 8.2, Eosinophils % 2.4, Basophils % 0.7, Absolute Granulocytes 3.4, Absolute Lymphocytes 1.7, Absolute Monocytes 0.5, Absolute Eosinophils 0.1, Absolute Basophils 0, PUBS MCHC 33.7 03/18/17 0615: Total Bilirubin Cancelled, Direct Bilirubin Cancelled, AST Cancelled, ALT Cancelled, Alkaline Phosphatase Cancelled, Total Protein Cancelled, Albumin Cancelled 03/18/17 0405: Anion Gap 9, Estimated GFR > 60, BUN/Creatinine Ratio 15.0, Total Bilirubin 0.7, Direct Bilirubin 0.4, GGT 107 H, AST 32, ALT 56 H, Alkaline Phosphatase 133 H , Total Protein 5.4 L, Albumin 2.6 L, CBC w Diff MAN DIFF ORDERED, RBC 3.71 L , MCV 92.0, MCH 30.8, RDW 13.6, MPV 7.9, Gran % 80.9 H, Lymphocytes % 11.9 L, Monocytes % 6.9, Eosinophils % 0, Basophils % 0.3, Absolute Granulocytes 13.2 H , Segmented Neutrophils 84 H, Band Neutrophils 1, Absolute Lymphocytes 1.9, Lymphocytes 10 L, Monocytes 5, Absolute Monocytes 1.1 H, Absolute Eosinophils 0, Absolute Basophils 0, Platelet Estimate ADEQUATE, Polychromasia 1+, Poikilocytosis 1+, Basophilic Stippling SLIGHT, Anisocytosis 1+, Elliptocytes FEW, PUBS [facility] 33.4 03/17/171999: pH 7.48 H, pCO2 27 L, pO2 71 L, HCO3 20 L, ABG O2 Sat (Measured) 95.0 L, Carboxyhemoglobin 1.0 L, O2 Concentration % RA, O2 Delivery Method RA, Phlebotomy Draw Site RIGHT BRACHIAL 03/17/17 1947: PT Cancelled, INR Cancelled 03/17/17 1607: Lactic Acid Cancelled 03/17/17 1535: Urinalysis LIGHT H, Urine Color YEL, Urine Clarity CLEAR, Urine pH 6.0, Ur Specific [place] 1.015, Urine Protein 100 H, Urine Ketones 15 H, Urine Nitrite NEG, Urine Bilirubin NEG, Urine Urobilinogen 0.2, Ur Leukocyte Esterase NEG, Ur Microscopic SEDIMENT EXAMINED, Urine RBC 1-3, Urine WBC RARE, Ur Epithelial Cells RARE, Urine Bacteria FEW H, Hyaline Casts 1-3 H, Urine Mucus FEW, Urine Hemoglobin SMALL H, Urine Glucose >=1000 H 03/17/17 1320: Lactic Acid 1.4 03/17/17 1145: Anion Gap 17 H, Estimated GFR > 60, BUN/Creatinine Ratio 16.3, Glucose 372 H, Calcium 9.0, Phosphorus 2.6, Magnesium 1.5 L, Total Bilirubin 1.6 H, AST 91 H , ALT 77 H, Alkaline Phosphatase 189 H, Total Protein 6.7, Albumin 3.5, Globulin 3.2, Albumin/Globulin Ratio 1.1, Lipase 46, TSH 0.764, CBC w Diff MAN DIFF ORDERED, RBC 4.62, MCV 91.1, MCH 30.2, RDW 13.2, MPV 8.1, Gran % 87.1 H, Lymphocytes % 6.6 L, Monocytes % 6.3, Eosinophils % 0, Basophils % 0, Absolute Granulocytes 15.2 H, Absolute Lymphocytes 1.2, Absolute Monocytes 1.1 H, Absolute Eosinophils 0, Absolute Basophils 0, Platelet Estimate VERIFIED BY SMEAR, Normocytic RBCs VERIFIED, Normochromic RBCs VERIFIED, PUBS MCHC 33.2 Microbiology 03/19 1004 STOOL: Clostridium difficile Toxin A & B - COMP 03/17 1535 URINE ROUT: Urine Culture - COMP 03/17 1332 BLOOD: Blood Culture - RES 03/17 1320 BLOOD: Blood Culture - RES 03/17 1307 BLOOD: Blood Culture - CAN Cancelled: Cancelled via OE: Per Decision 03/17 124 NASOPHARYN: Influenza Virus A & B Rapid Smear - COMP Microbiology 03/19 1004 STOOL: Clostridium difficile Toxin A & B - COMP 03/17 1535 URINE ROUT: Urine Culture - COMP 03/17 1332 BLOOD: Blood Culture - RES 03/17 1320 BLOOD: Blood Culture - RES 03/17 1307 BLOOD: Blood Culture - CAN Cancelled: Cancelled via OE: Per Decision 03/17 1247 NASOPHARYN: Influenza Virus A & B Rapid Smear - COMP Vital Signs Date Time Temp Pulse Resp B/P B/P Pulse O2 O2 Flow FiO2 Mean Ox Delivery Rate 03/20 0800 Room Air 03/20 0627 98.2 84 18 140/86 94 Room Air 03/20 0000 Room Air 03/19 2211 98.8 91 20 142/90 95 Room Air 03/19 1600 95 Room Air Room Air 03/19 1413 97.5 94 20 120/70 98 Room Air
--- NOTE | 2017-03-20 13:03 | Discharge Summary ---
Visit Information Visit Dates Admission Date: 03/17/17 Discharge Date: 03/20/17 Hospital Course Course Attending Physician: Darnell WAKEFIELD,Vineet Saldana Primary Care Physician: Con Vital MD Allergies: Coded Allergies: NO KNOWN ALLERGIES (09/14/14) Discharge Instructions Medications at Discharge Discharge Medications: Continue taking these medications: Amlodipine Besylate/Benazepril (Amlodipine-Benazepril 5-10 MG) 5 MG-10 MG CAPSULE 1 Capsule ORAL DAILY Qty = 30 Sitagliptin Phosphate (Januvia) 100 MG TABLET 1 Tablet ORAL DAILY Qty = 90 Furosemide (Furosemide) 20 MG TABLET 1 Tablet ORAL as needed for DIURETIC Qty = 30 Ferrous Sulfate (IRON) 325 MG (65 MG IRON) TABLET 1 Tablet ORAL DAILY Comments: Last Taken: 03/20/17 Time: 9:30 AM Pioglitazone HCl/Metformin HCl (Actoplus Met 15 MG-850 MG Tab) 15 MG-850 MG TABLET 1 Tablet ORAL TWICE DAILY Qty = 60 Omeprazole (Omeprazole) 40 MG CAPSULE.DR 1 Capsule ORAL DAILY Qty = 30 Comments: Last Taken: 03/20/17 Time: 6:00 AM Start taking the following new medications: Amoxicillin/Clavulanate Potass (Amox-Clav 875-125 MG Tablet) 875 MG-125 MG TABLET 1 Tablet ORAL TWICE DAILY Qty = 14 No Refills Comments: Last Taken: 03/20/17 Time: 9:30 AM
--- NOTE | 2017-03-20 17:18 | Discharge Summary ---
Visit Information Visit Dates Admission Date: 03/17/17 Discharge Date: 03/20/17 Hospital Course Course Attending Physician: Vineet Patrick MD Primary Care Physician: Zahraa WAKEFIELD,[facility] Course: 71-year-old female wasn't feeling well for several days with nausea vomiting abdominal pain cough some sputum and chills comes to the emergency room found to have an elevated white count is slightly abnormal liver function tests. The original chest x-ray showed some atelectasis, the abdominal ultrasound showed mild hepatomegaly otherwise unremarkable liver. Patient had a CTA of the chest showed no pulmonary emboli and focal consolidation in the left lower lobe posteriorly patient was admitted was treated for pneumonia. Her swab was negative for influenza A and B. Her white count/17,500 16,400 before discharge 5700 back to normal. Were negative for C. difficile. With the protocol treatment issues started to improve getting stronger. Patient has been very hard of hearing so maybe related to some head congestion. Was advised to have an ear nose and throat evaluation when she is discharged patient was stable for discharge on March 20. Finish oral antibiotics, follow as an outpatient in my office in follow-up chest x-ray Complications: None Allergies: Coded Allergies: NO KNOWN ALLERGIES (09/14/14) Significant Procedures: SERVICE DATE: 03/17/17-1212 EXAM TYPE: RAD - XRY-PORTABLE CHEST XRAY EXAMINATION: XR PORTABLE CHEST CLINICAL INFORMATION: Shortness of breath and cough with right-sided rhonchi. Rule out pneumonia. COMPARISON: Chest x-ray dated 02/20/2009. TECHNIQUE: Portable frontal view of the chest was obtained. FINDINGS: The cardiac silhouette is within normal limits in size. Tortuosity and ectasia of the ascending and descending aorta is seen. Bilateral hilar fullness is also noted. Findings are likely accentuated by the rotated positioning of the patient. Lungs bilaterally are symmetrically expanded and demonstrate slight diffuse reticular prominence in the lower lobes bilaterally, consistent with minimal subsegmental atelectasis. No focal consolidation, effusion or pneumothorax is seen. Thoracolumbar scoliosis and degenerative changes are seen in the thoracic spine IMPRESSION: Minimal bibasilar subsegmental atelectasis. No focal pneumonia. SERVICE DATE: 03/17/17-1253 EXAM TYPE: US - US-COMPLETE ABDOMEN EXAMINATION: US ABDOMEN COMPLETE CLINICAL INFORMATION: Sepsis and elevated LFTs.. COMPARISON: CT abdomen and pelvis 09/15/2014 TECHNIQUE: Real-time imaging of the abdominal viscera. Millimeter imaging secondary to patient's body habitus and overlying bowel gas FINDINGS: PANCREAS: Partially the body the pancreas is visualized and is normal. Rest the pancreas obscured by overlying bowel gas ABDOMINAL AORTA: The proximal segment is normal in caliber. INFERIOR VENA CAVA: Visualized portions are normal. LIVER: The liver demonstrates enlarged size with normal contour and normal echogenicity. No focal lesion or intrahepatic biliary duct dilatation. Liver measures 18.0 cm in length. GALLBLADDER: The gallbladder has been surgically resected. COMMON BILE DUCT: Normal in caliber measuring 0.4 cm in diameter. RIGHT KIDNEY: Normal. No hydronephrosis. No renal calculi or focal parenchymal lesions. The kidney measures 9.1 cm in maximum dimension. LEFT KIDNEY: Normal. No hydronephrosis. No renal calculi or focal parenchymal lesions. The kidney measures 13.2 cm in maximum dimension. SPLEEN: Normal. The spleen measures 9.6 cm in maximum dimension. FREE FLUID: None. IMPRESSION: Mild hepatomegaly otherwise unremarkable liver. The pancreas is not entirely visualized due to overlying bowel gas. SERVICE DATE: 03/17/17 EXAM TYPE: CAT - CTA CHEST EXAMINATION: CT ANGIOGRAM CHEST, PE STUDY CLINICAL INFORMATION: Shortness of breath. Chest pain. Tachycardia. Tachypnea. Hypoxia. COMPARISON: Chest x-ray 03/17/2017 TECHNIQUE: A noncontrast localizer was performed, followed by the administration of 75 mL Optiray [address] of the chest was then performed. Coronal and sagittal reformatted and 3-D technique MIP images of the chest were completed at the CT scanner and reviewed on the PACS workstation. No adverse effects were reported. DLP: 563.29 mGy-cm. FINDINGS: VASCULAR: The main pulmonary artery, secondary and tertiary branches of the pulmonary artery are normally opacified with no evidence of pulmonary embolism. The aorta and great vessels are unremarkable. MEDIASTINUM: No mediastinal mass. No significant lymphadenopathy. There is no pericardial effusion. LUNGS: Focal dense consolidation with air bronchograms at the dependent posterior costophrenic angle of the left lower lobe. Right lung is clear. Central bronchial airways are open. No interstitial or reticular opacity. FLUID: There is no pericardial effusion. There is no pleural effusion. AXILLA: No significant lymphadenopathy. UPPER ABDOMEN: Adrenal glands normal. Visualized portions of liver and spleen unremarkable. Status post cholecystectomy. SKELETAL: Degenerative spondylosis of dorsal spine with multilevel disc height narrowing with vacuum disc phenomena. There is endplate spurring of the vertebrae. IMPRESSION: 1. No evidence of pulmonary embolism. 2. Focal consolidated infiltrate at the left lower lobe posteriorly. Pertinent Lab Results: 03/17/17 1320: Lactic Acid 1.4 03/17/17 1145: Anion Gap 17 H, Estimated GFR > 60, BUN/Creatinine Ratio 16.3, Glucose 372 H, Calcium 9.0, Total Bilirubin 1.6 H, AST 91 H, ALT 77 H, Alkaline Phosphatase 189 H, Total Protein 6.7, Albumin 3.5, Globulin 3.2, Albumin/Globulin Ratio 1.1 , Lipase 46, CBC w Diff MAN DIFF ORDERED, RBC 4.62, MCV 91.1, MCH 30.2, RDW 13.2 , MPV 8.1, Gran % 87.1 H, Lymphocytes % 6.6 L, Monocytes % 6.3, Eosinophils % 0, Basophils % 0, Absolute Granulocytes 15.2 H, Absolute Lymphocytes 1.2, Absolute Monocytes 1.1 H, Absolute Eosinophils 0, Absolute Basophils 0, Platelet Estimate VERIFIED BY SMEAR, Normocytic RBCs VERIFIED, Normochromic RBCs VERIFIED, PUBS MCHC 33.2 03/17/17 1535: Urinalysis LIGHT H, Urine Color YEL, Urine Clarity CLEAR, Urine pH 6.0, Ur Specific [place] 1.015, Urine Protein 100 H, Urine Ketones 15 H, Urine Nitrite NEG, Urine Bilirubin NEG, Urine Urobilinogen 0.2, Ur Leukocyte Esterase NEG, Ur Microscopic SEDIMENT EXAMINED, Urine RBC 1-3, Urine WBC RARE, Ur Epithelial Cells RARE, Urine Bacteria FEW H, Hyaline Casts 1-3 H, Urine Mucus FEW, Urine Hemoglobin SMALL H, Urine Glucose >=1000 H 03/17/171999: pH 7.48 H, pCO2 27 L, pO2 71 L, HCO3 20 L, ABG O2 Sat (Measured) 95.0 L, Carboxyhemoglobin 1.0 L, O2 Concentration % RA, O2 Delivery Method RA, Phlebotomy Draw Site RIGHT BRACHIAL Anion Gap 9, Estimated GFR > 60, BUN/Creatinine Ratio 15.0, Total Bilirubin 0.7, Direct Bilirubin 0.4, GGT 107 H, AST 32, ALT 56 H, Alkaline Phosphatase 133 H , Total Protein 5.4 L, Albumin 2.6 L, CBC w Diff MAN DIFF ORDERED, RBC 3.71 L , MCV 92.0, MCH 30.8, RDW 13.6, MPV 7.9, Gran % 80.9 H, Lymphocytes % 11.9 L, Monocytes % 6.9, Eosinophils % 0, Basophils % 0.3, Absolute Granulocytes 13.2 H , Segmented Neutrophils 84 H, Band Neutrophils 1, Absolute Lymphocytes 1.9, Lymphocytes 10 L, Monocytes 5, Absolute Monocytes 1.1 H, Absolute Eosinophils 0, Absolute Basophils 0, Platelet Estimate ADEQUATE, Polychromasia 1+, Poikilocytosis 1+, Basophilic Stippling SLIGHT, Anisocytosis 1+, Elliptocytes FEW, PUBS MCHC 33.4 03/19/17 0650: Anion Gap 11, Estimated GFR > 60, BUN/Creatinine Ratio 10.0, Total Bilirubin 0.4 , Direct Bilirubin 0.3, AST 19, ALT 40, Alkaline Phosphatase 119, Total Protein 5.3 L, Albumin 2.6 L, CBC w Diff NO MAN DIFF REQ, RBC 3.58 L, MCV 90.1, MCH 30.4, RDW 13.4, MPV 8.0, Gran % 59.8, Lymphocytes % 28.9, Monocytes % 8.2, Eosinophils % 2.4, Basophils % 0.7, Absolute Granulocytes 3.4, Absolute Lymphocytes 1.7, Absolute Monocytes 0.5, Absolute Eosinophils 0.1, Absolute Basophils 0, PUBS MCHC 33.7 03/20/17 0730: Anion Gap 10, Estimated GFR > 60, BUN/Creatinine Ratio 10.0 Disposition Summary Disposition Principal Diagnosis: Left lower lobe pneumonia Nausea abdominal pain and diarrhea Additional Diagnosis: Hypertension Diabetes mellitus GERD Arthritis Discharge Disposition: home or self care Discharge Instructions General Discharge Information Code Status: Full Code Patient's Diet: Diabetic ,healthy heart Patient's Activity: As tolerated Follow-Up Instructions/Appts: Problem with Dr. Vital Medications at Discharge Discharge Medications: Continue taking these medications: Amlodipine Besylate/Benazepril (Amlodipine-Benazepril 5-10 MG) 5 MG-10 MG CAPSULE 1 Capsule ORAL DAILY Qty = 30 Sitagliptin Phosphate (Januvia) 100 MG TABLET 1 Tablet ORAL DAILY Qty = 90 Furosemide (Furosemide) 20 MG TABLET 1 Tablet ORAL as needed for DIURETIC Qty = 30 Ferrous Sulfate (IRON) 325 MG (65 MG IRON) TABLET 1 Tablet ORAL DAILY Comments: Last Taken: 03/20/17 Time: 9:30 AM Pioglitazone HCl/Metformin HCl (Actoplus Met 15 MG-850 MG Tab) 15 MG-850 MG TABLET 1 Tablet ORAL TWICE DAILY Qty = 60 Omeprazole (Omeprazole) 40 MG CAPSULE.DR 1 Capsule ORAL DAILY Qty = 30 Comments: Last Taken: 03/20/17 Time: 6:00 AM Start taking the following new medications: Amoxicillin/Clavulanate Potass (Amox-Clav 875-125 MG Tablet) 875 MG-125 MG TABLET 1 Tablet ORAL TWICE DAILY Qty = 14 No Refills Comments: Last Taken: 03/20/17 Time: 9:30 AM Copies To: Zahraa WAKEFIELD,Con Attending Review Statement Documenting Attending: Con Vital MD
== END 2017-03-20 13:22 | DRG 194 ==
LOC: ERH 11:26 → ERHI 14:00 → 2NB 14:00 → ENRESERV 03-18 18:16 → CANRESERV 03-18 18:16 → ENTRNSPT 03-18 19:35 → EDTRNSPT 03-18 21:19 → ENRESERV 03-18 21:26 → 2NB 03-18 21:52 → CMPTRNSPT 03-18 22:08 → ENPENDDIS 03-20 12:31 → ENTRNSPT 03-20 13:09 → EDTRNSPTSTS 03-20 13:16 → 2NB 03-20 13:22 → CMPTRNSPT 03-20 13:29
PROVIDERS: Emergency Medicine; Student in an Organized Health Care Education/Training Program
DX: J18.9 Pneumonia, unspecified organism (principal); E87.3 Alkalosis; E11.9 Type 2 diabetes mellitus without complications; K52.9 Noninfective gastroenteritis and colitis, unspecified; E86.0 Dehydration; I10 Essential (primary) hypertension; K21.9 Gastro-esophageal reflux disease without esophagitis; Z87.891 Personal history of nicotine dependence; Z79.84 Long term (current) use of oral hypoglycemic drugs
CPT/HCPCS: 2NBP; ERO; 36415; 71045; 81001; 82436; 87040; 87086; 87804; 87804-59; 93005; 93010; 99291; J0456; J0696; J7040; J7060